=== PATIENT | male | born 1970 ===

== ENCOUNTER 2022-02-04 12:04 | Emergency (ER) | payer SELFPAY ==
[~2022-02-04] VITALS: Ht 177.8 cm; Wt 122.5 kg
== END 2022-02-04 15:43 | disposition left against medical advice (07) ==
LOC: ER 12:04
DX: R07.81 Pleurodynia (principal); W15.XXXA Fall from cliff, initial encounter; Z53.21 Procedure and treatment not carried out due to patient leaving prior to being seen by health care provider
CPT/HCPCS: 99281